=== PATIENT | female | born 1945 | race Caucasian/White ===

== ENCOUNTER → 2021-05-23 08:59 | Outpatient (CLI) | payer MEDICARE, SELFPAY ==
[2021-05-23 11:19] LABS: COVID19 -Nasal RAPID Negative (Negative)
== END ==
PROVIDERS: Visit Provider Nurse Practitioner Family
DX: Z20.822 Contact with and (suspected) exposure to COVID-19 (principal); Z01.812 Encounter for preprocedural laboratory examination
CPT/HCPCS: 87635; C9803

== ENCOUNTER 2021-05-24 10:19 | Day surgery (SDC) | payer MEDICARE, SELFPAY ==
--- NOTE | 2021-05-24 | PATH_ITS ---
[facility] Accession Number: [id number] . 01 Material submitted: . sigmoid colon - SIGMOID POLYP . 02 Diagnosis: Sigmoid Colon, Polyp, Biopsy: Tubular adenoma. MRV 05/26/2021 1113 Local . 02 Electronically signed: . Shasta Ceja MD, Pathologist NPI- [id number] . 01 Gross description: . SIGMOID POLYP: Received in formalin is 1 fragment(s) of faust, soft tissue measuring 0.5 x 0.4 x 0.2 cm submitted entirely in 1 cassette(s) /TAYA 05/25/2021 0433 Local . 02 Pathologist provided ICD-10: D12.5 . 02 CPT . 877871 Performed at: 01 [facility] Cytology [address] [id number] MD Beau Dill MD Phone: [phone] Performed at: 02 [facility] [address] [place], [place] [id number] MD Shasta Ceja MD Phone: [phone]
[2021-05-24 10:54] VITALS: BP 157/93; PULSE 106; RESP 16; TEMP 36.7; O2SAT 100; BMI 23.4
[2021-05-24] MEDS: SODIUM CHLORIDE 0.9% 1,000 ML 84 ML IV (11:07)
--- NOTE | 2021-05-24 11:16 | PM.HP.1 ---
History of Present Illness History of Present Illness Date Patient Seen: 05/24/21 Time Patient Seen: 11:16 Chief complaint: SDC Narrative: Here for colonoscopy. I reviewed my note from April 18, 2021. The patient has incorporated some sauerkraut into her dietary stream and has backed off on the Metamucil to some degree. She feels her stools are essentially normal at this time and seems fairly pleased with the results. She does have a personal history of colon polyps and last colonoscopy was 2015. Patient History Medical History Anxiety Colon polyps Diverticulosis Hiatal hernia Hypertension Sinus tachycardia Family & Social History Social History: household members spouse Tobacco & Substance use: Smoking Status Never smoker alcohol intake frequency a few times a week Substance Use Type does not use Meds Home Medications and Allergies Home Medications Medication Instructions Recorded Confirmed Type acyclovir 400 mg PO DAILY 05/24/21 05/24/21 History alprazolam 0.25 mg PO PRN PRN 05/24/21 05/24/21 History metoprolol tartrate 12.5 mg PO DAILY 05/24/21 05/24/21 History temazepam 15 mg PO PRN PRN 05/24/21 05/24/21 History Allergies Allergy/AdvReac Type Severity Reaction Status Date / Time Penicillins Allergy Severe SOB Verified 05/24/21 10:48 Sulfa (Sulfonamide Allergy Intermediate Rash Verified 05/24/21 10:48 Antibiotics) prochlorperazine Allergy Unknown Verified 05/24/21 10:48 [From Compazine] carisoprodol AdvReac Intermediate Anxiety Verified 05/24/21 10:48 codeine AdvReac Intermediate restless Verified 05/24/21 10:48 erythromycin base AdvReac Intermediate Diarrhea Verified 05/24/21 10:48 tetracycline AdvReac Intermediate Diarrhea Verified 05/24/21 10:48 Review of Systems Review of Systems ROS: Yes All systems reviewed with the patient and are negative except as otherwise documented Exam Vital Signs (past 8 hours): - 05/24/21 10:54 Temperature 98.1 F Pulse Rate 106 H Respiratory Rate 16 Blood Pressure 157/93 H Pulse Oximetry 100 Oxygen Delivery Method Room Air Const General: cooperative and comfortable Orientation: alert HENMT Head: normocephalic Ears: external ears normal Nose: external nose normal Face and sinus: normal facial exam Mouth: oral mucosae normal Eyes General: appearance normal, both eyes and all related structures Neck Neck: normal visual inspection Chest Chest: normal inspection of the chest Resp Effort & Inspection: normal respiratory effort Auscultation: clear to auscultation bilaterally Cardio Rate: regular rate Rhythm: regular rhythm Heart Sounds: no murmurs GI Inspection: normal to inspection Palpation: soft and No tender Auscultation: normal bowel sounds Skin General: no rashes or lesions noted and No jaundice Neuro General: patient alert and moves all extremities Cognition: normal cognition Speech: speech normal Extrem General: no pedal edema Psych Appearance: grossly normal Assessment & Plan Assessment & Plan narrative: Personal history of colon polyps. Patient has had a return to normal bowel habit. Colonoscopy is pursued today for her history of polyps. Time Spent With Patient Critical Care time: I spent a total of [] minutes of critical care time on this patient's care today; this time is exclusive of procedural time.
--- NOTE | 2021-05-24 11:18 | PM.PREOP ---
Pre-operative Note COVID-19 COVID-19 status: Negative Result date/Date tested (Pos, Neg/Pending): 05/23/21 Interval Note History & Physical reviewed/Exam performed by Physician: Yes Changes to H&P: Yes ASA Class (for procedural sedation): II
--- NOTE | 2021-05-24 11:45 | PM.OP.COLON ---
Operative Date/Time/Diagnoses Date of procedure: 05/24/21 Time of procedure: 11:45 Pre-op diagnosis: Personal history of colon polyps. Post-op diagnosis: same Procedure & Clinicians Study performed: Colonoscopy with cold forceps polypectomy Same procedure as scheduled: Yes Indications: Personal history of colon polyps Surgeon: Tulio Kearns Procedure Notes SCOAP/Timeout: Done Procedure in detail: After the risks and benefits were explained, written and verbal informed consent was obtained. The patient was brought into the procedure room and placed into the left lateral decubitus position. Please see nurse executive relations specialist sedation notes. Digital rectal examination was accomplished. The scope was introduced into the patient and advanced under direct visualization to the cecum as identified by the appendiceal orifice and ileocecal valve. The scope was slowly withdrawn to carefully examine the mucosa for any defects or lesions. Comprehensive imaging was accomplished throughout the rectum including the dentate line. The colon was decompressed, the scope was then removed from the patient who tolerated the procedure well. Bowel prep adequate Adult colonoscope Scope withdrawal time: 8 minutes Sedation minutes: 20 Complications: none Impression: There was some scant diverticula in the sigmoid. Patient had a mildly tortuous defecation through the left colon. In the sigmoid colon there was an approximately 4-5 mm sessile polyp removed with cold forceps. No significant additional pathology was identified throughout. Endoscopic diagnosis 1. Diminutive colon polyp 2. Mild diverticulosis Post-procedure Recommendations: Colonoscopy in 5 years Plan for aftercare: 1. Await histopathology 2. Repeat colonoscopy 5 years. Disposition: PACU
[2021-05-24 11:49] VITALS: BP 114/70; PULSE 84; RESP 13; TEMP 36.4; O2SAT 99
[2021-05-24 11:54] VITALS: BP 127/75; PULSE 86; RESP 13; O2SAT 99
[2021-05-24 11:59] VITALS: BP 132/80; PULSE 85; RESP 14; O2SAT 99
[2021-05-24 12:04] VITALS: BP 136/85; PULSE 84; RESP 13; TEMP 36.4; O2SAT 98
[2021-05-24 12:21] VITALS: BP 155/86; PULSE 85; RESP 12; TEMP 36.4; O2SAT 99
== END 2021-05-24 12:37 | disposition home or self-care (01) ==
PROVIDERS: Referring Provider Internal Medicine Gastroenterology; Visit Provider Internal Medicine Gastroenterology
PROC: 0DJD8ZZ Inspection of Lower Intestinal Tract, Via Natural or Artificial Opening Endoscopic (ICD-10-PCS; CPT 45378; principal; 2021-05-24 11:30)
DX: Z12.11 Encounter for screening for malignant neoplasm of colon (principal); Z86.010 Personal history of colon polyps; D12.5 Benign neoplasm of sigmoid colon; K57.30 Diverticulosis of large intestine without perforation or abscess without bleeding
CPT/HCPCS: 45380; J2704